=== PATIENT | female | born 1950 | race Two or more races ===

== ENCOUNTER 2024-04-20 16:11 | Emergency (ER) | payer SELFPAY ==
[2024-04-20 16:22] VITALS: BP 191/78; PULSE 81; RESP 16; TEMP 37.4; O2SAT 95
--- NOTE | 2024-04-20 16:26 | XR_ITS ---
Examination: CT cervical spine without contrast 2-D sagittal reconstructions 2-D coronal reconstructions 3-D reconstructions. Exam date and time:April 20, 2024 at 1709 hrs. Indications: Patient fell today with injury to the neck, neck pain CTDI:vol (mGy) 8.79 DLP: (mGycm) 168 Technique: Multiple 2 mm axial sections of the cervical spine have been obtained. The coronal and sagittal reconstructions have been obtained. 3-D reconstructions have been obtained. Low dose protocols were performed. One or more of the following dose reduction techniques were used; automated exposure control, adjustment of the mA and/or KV according to patient size, use of iterative reconstruction technique. Findings: Axial sections demonstrate intact base of the skull. Cervical fusion C3-C5 with advanced degenerative disc disease C5-C6 C1 exhibit satisfactory relationship to the odontoid. No acute cervical vertebral body fracture seen. Alignment posterior spinous processes satisfactory. Impression: No acute cervical fracture.
--- NOTE | 2024-04-20 16:26 | XR_ITS ---
Examination: CT brain head without contrast. 2-D sagittal coronal reconstructions Date and time of exam:April 20,025, 7009 hours Indications: Patient fell today with injury to the head, head pain CTDI: vol (mGy):50.5 DLP: (mGycm):1004 Technique: Multiple CT axial sections of the brain have been obtained, 5 mm slice thickness. Contrast has not been administered. 2-D sagittal, coronal reconstructions have been obtained Low dose protocols were performed. One or more of the following dose reduction techniques were used; automated exposure control, adjustment of the mA and/or KV according to patient size, use of iterative reconstruction technique. Findings: No significant ventricular enlargement. Soft tissue left forehead scalp swelling Intra-axial or extra-axial hemorrhage density is not seen. No mass effect or midline shift Basal cisterns are not remarkable. Fourth ventricle is midline. Cranial vault intact. Impression: Negative for acute hemorrhage, mass effect or midline shift
--- NOTE | 2024-04-20 16:29 | EKG_ITS ---
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
--- NOTE | 2024-04-20 16:29 | PD.EDRME ---
Rapid Medical Screening Exam [facility] Arrival date/time: 04/20/24 16:11 74-year-old female with a history of a left-sided below the knee amputation presents to the emergency room with a chief complaint of a ground-level fall causing her to hit her head. Patient has a laceration to her forehead. Patient states she felt numb to her good leg and felt weak. She did not slip or trip on anything. I have greeted and performed a focused initial assessment of this patient. A comprehensive ED assessment and evaluation of the patient, analysis of all test results, and completion of the medical decision making process will be conducted by additional ED providers. 18:42 74-year-old female with history of hypertension and prediabetes as well as left BKA presents to the emergency department with facial injuries following ground-level fall. Patient states she was sitting for an extended period of time and her other leg was beginning to feel tingly. She got up to stretch her leg when her knee buckled and she fell to the ground striking her face on the ground. Now with abrasions and lacerations to her face. Patient denies neck pain, focal neurologic complaints, no headache, no confusion. No difficulty speaking or swallowing. No vision changes. Patient absolutely denies any and all symptoms prior to the fall, such as chest pain, dyspnea, belly pain, dizziness or lightheadedness. On exam the patient has extensive abrasions across her forehead, nose and perioral area. She has a small 1 cm laceration to the bridge of her nose and a large, 6 cm stellate macerated laceration to the forehead. Bleeding is controlled. CT head and C-spine are normal. Workup is basically normal. She is going to need sutures. Chief Complaint: Fall Time Seen by Provider: 04/20/24 16:15 Vital signs: Vital Signs Temperature 99.4 F 04/20/24 16:22 Pulse Rate 81 04/20/24 16:22 Respiratory Rate 16 04/20/24 16:22 Blood Pressure 191/78 H 04/20/24 16:22 Pulse Oximetry (%) 95 04/20/24 16:22 Oxygen Delivery Method Room Air 04/20/24 16:22 Vital signs reviewed by provider: Yes
--- NOTE | 2024-04-20 16:36 | PC.NURSE ---
cleaned facial wounds, irrigated with NS. Provider aware.
[2024-04-20 16:56] LABS: Basophils # (Auto) 0.1 Thou/mm3 (0.0-0.2); Basophils % (Auto) 1 % (0-2.5); Eosinophils # (Auto) 0.1 Thou/mm3 (0.0-0.5); Eosinophils % (Auto) 1 % (0-10); Hematocrit 34.7 % (36.0-46.0); Hemoglobin 12.1 g/dL (12.0-16.0); Immature Granulocytes % (Auto) 1 % (0-0); Immature Granulocytes Auto 0.05 Thou/mm3 (0.00-0.00); Lymphocytes # (Auto) 3.3 Thou/mm3 (1.0-4.8); Lymphocytes % (Auto) 37 % (10-50); Mean Corpuscular HGB Conc 34.9 g/dl (31.0-37.0); Mean Corpuscular Hemoglobin 30.4 pg (25.0-35.0); Mean Corpuscular Volume 87 fL (80-100); Monocytes # (Auto) 0.8 Thou/mm3 (0.0-0.8); Monocytes % (Auto) 9 % (0-12); Neutrophils # (Auto) 4.7 Thou/mm3 (1.8-7.7); Neutrophils % (Auto) 53 % (37-80); Nucleated Red Blood Cell % 0 /100 WBC (0); Platelet Count 254 Thou/mm3 (140-440); RDW Standard Deviation 41.3 fL (36.4-46.3); Red Blood Count 3.98 Miln/mm3 (4.00-5.20)
[2024-04-20 17:09] LABS: Partial Thromboplastin Time 27.6 Seconds (22.0-36.0); Prothrombin Time 10.9 Seconds (9.0-12.2)
[2024-04-20 17:25] LABS: B-Type Natriuretic Peptide 149 pg/mL (0-100)
[2024-04-20 17:27] LABS: Alanine Aminotransferase 13 U/L (10-49); Albumin, Serum 4.1 gm/dL (3.4-4.8); Albumin/Globulin Ratio 1.2 (1.2-2.2); Alkaline Phosphatase 147 U/L (46-116); Anion Gap 13 (7-16); Aspartate Amino Transferase 15 U/L (0-34); BUN/Creatinine Ratio 27 Ratio (12-20); Bilirubin,Total 0.3 mg/dL (0.3-1.2); Blood Urea Nitrogen 30 mg/dL (9-23); Calcium 9.5 mg/dL (8.3-10.6); Calcium (Corrected) 9.5 mg/dL (8.5-10.1); Carbon Dioxide 20.4 mMol/L (20.0-31.0); Chloride 99 mMol/L (98-107); Creatinine (Component) 1.1 mg/dL (0.6-1.3); Globulin 3.4 gm/dL (2.3-3.5); Glucose 111 mg/dL (74-106); Osmolality,Calculated 271 (275-295); Potassium 3.8 mMol/L (3.4-5.1); Sodium 132 mMol/L (136-145); Total Protein 7.5 gm/dL (5.7-8.2); Troponin I < 0.020 ng/mL (0.0-0.045); eGFR 53 See Note
[2024-04-20 18:11] VITALS: BP 168/89; PULSE 74; RESP 18; TEMP 36.9; O2SAT 98
--- NOTE | 2024-04-20 18:50 | EDNOTE_ITS ---
ED Fall Injury RME/HPI General Chief Complaint: Fall Stated Complaint: LACERATION TO FORHEAD S/P TRIP AND FALL Time Seen by Provider: 04/20/24 16:15 Source: patient and family Arrival date/time: 04/20/24 16:11 Mode of arrival: ambulatory Limitations: no limitations RME / HPI RME / HPI Narrative: 04/20/24 16:11 74-year-old female with a history of a left-sided below the knee amputation presents to the emergency room with a chief complaint of a ground-level fall causing her to hit her head. Patient has a laceration to her forehead. Patient states she felt numb to her good leg and felt weak. She did not slip or trip on anything. I have greeted and performed a focused initial assessment of this patient. A comprehensive ED assessment and evaluation of the patient, analysis of all test results, and completion of the medical decision making process will be conducted by additional ED providers. Dr. Price?s Main ED Evaluation: 18:42 74-year-old female with history of hypertension and prediabetes as well as left BKA presents to the emergency department with facial injuries following ground-level fall. Patient states she was sitting for an extended period of time and her other leg was beginning to feel tingly. She got up to stretch her leg when her knee buckled and she fell to the ground striking her face on the ground. Now with abrasions and lacerations to her face. Patient denies neck pain, focal neurologic complaints, no headache, no confusion. No difficulty speaking or swallowing. No vision changes. Patient absolutely denies any and all symptoms prior to the fall, such as chest pain, dyspnea, belly pain, dizziness or lightheadedness. Related Data Previous Rx's ?Medication ?Instructions ?Recorded acetaminophen 500 mg capsule 1,000 mg (2 x 500 mg) PO Q6H PRN 04/20/24 For pain #30 caps mupirocin 2 % topical ointment 1 applic topical BID 7 days #22 04/20/24 grams Allergies Allergy/AdvReac Type Severity Reaction Status Date / Time No Known Allergies Allergy Verified 04/20/24 16:14 Review of Systems Review of Systems Systems Reviewed: All systems reviewed, normal except as documented Past Medical History Past Medical History NEUROLOGIC: Negative Neurological Disorders, Seizures or Epilepsy CARDIAC: Positive Cardiac Disorders and Hypertension; Negative Congestive Heart Failure RESPIRATORY: Negative Respiratory Disorders or Chronic Obstructive Pulmonary Disease (COPD) GASTROINTESTINAL: Negative Gastrointestinal Disorders GENITOURINARY: Negative Genitourinary Disorders or Renal Disease MUSCULOSKELETAL: Negative Arthritis, Rheumatoid Arthritis or Fractures ENT: Negative History of ENT Problems ENDOCRINE: Positive Endocrine Disorders (prediabetic on metformin) and Hypothyroidism; Negative Diabetes Mellitus Type 1 or Diabetes Mellitus Type 2 HEMATOLOGIC: Negative Blood Disorders OTHER HISTORY: Positive Blood Transfusions; Negative Blood Transfusion Reaction, Anesthesia Reactions or Cancer Surgical History SURGICAL: Positive Amputation (left BKA) Social History SMOKING STATUS: Never smoker ED Exam Narrative Physical exam: Patient has extensive abrasions across her forehead, nose and perioral area. She has a small 1 cm laceration to the bridge of her nose and a large, 6 cm stellate macerated laceration to the forehead. Bleeding is controlled. General Limitations: Present no limitations General appearance: Present alert and in no apparent distress Head Head exam: Present atraumatic Eye Eye exam: Present normal appearance, PERRL and EOMI ENT ENT exam: Present normal exam, normal oropharynx and mucous membranes moist Neck Neck exam: Present normal inspection, full ROM and trachea midline Chest Chest inspection: Present normal inspection and symmetric chest wall rise Respiratory Respiratory exam: Present normal lung sounds bilaterally Cardiovascular Cardiovascular exam: Present regular rate, normal rhythm and normal heart sounds Abdominal Exam Abdominal exam: Present soft and normal bowel sounds Extremities Exam Extremities exam: Present normal inspection and full ROM Back Exam Back exam: Present normal inspection and full ROM Neurological Exam Neurological exam: Present alert, oriented X3 and CN II-XII intact Psychiatric Psychiatric exam: Present normal affect and normal mood Skin Skin exam: Present warm, dry, intact and normal color Course Quality Measures none Orders Category Date Time Status EKG (ED ONLY) *Do not use* NOW Care 04/20/24 16:29 Active Set Up Suture Tray STAT Care 04/20/24 18:[address] cervical spine wo con Stat Exams 04/20/24 16:[address] head/brain wo con Stat Exams 04/20/24 16:26 Completed EKG (ED Only) Stat Exams 04/20/24 16:29 Draft B-Type Natriuretic Peptide Stat Lab 04/20/24 16:45 Completed CBC Stat Lab 04/20/24 16:45 Completed CMP [Comprehensive Metabolic Panel] Stat Lab 04/20/24 16:45 Completed Partial Thromboplastin Time Stat Lab 04/20/24 16:45 Completed Prothrombin Time with INR Stat Lab 04/20/24 16:45 Completed Troponin I Stat Lab 04/20/24 16:45 Completed Bacitracin Oint pkt Med 04/20/24 18:50 Discontinued 1 gm TOP X1 ONE Bupivacaine Mpf/Epi 0.25% [Sensorcaine-Mpf Inj 0.25% w/ Med 04/20/24 18:48 Discontinued Epi] 30 ml EPID X1 ONE Lidocaine 1% 20 ml [Xylocaine 1% 20 ML] Med 04/20/24 20:10 Discontinued 20 ml INFL X1 ONE Vital Signs Vital signs: Vital Signs Temperature 99.4 F 04/20/24 16:22 Pulse Rate 81 04/20/24 16:22 Respiratory Rate 16 04/20/24 16:22 Blood Pressure 191/78 H 04/20/24 16:22 Pulse Oximetry (%) 95 04/20/24 16:22 Oxygen Delivery Method Room Air 04/20/24 16:22 Procedures -ED Procedure Comment The patient sustained a complex avulsion laceration to the forehead, which required partial closure to avoid compromising blood flow to the tissue flap. Due to the complexity of the avulsion, complete approximation with sutures was not possible without risking tissue ischemia. Laceration Laceration 1: Site: other (forehead) Size (cm): 6 Description: stellate Depth: simple, single layer Local Anesthetic: lidocaine 2% (without epi, 9cc) Pre-repair: wound explored and irrigated extensively Skin layer closed with: nylon Size (cm): 5-0 Number of sutures: 11 Technique: simple, interrupted Laceration 2: Site: other (bridge of nose) Size (cm): 1 Description: linear Depth: simple, single layer Local Anesthetic: lidocaine 2% Pre-repair: wound explored and irrigated extensively Skin layer closed with: nylon Size (cm): 5-0 Number of sutures: 2 Technique: simple, interrupted Fall MDM Narrative MDM Narrative:: CT head and C-spine are normal. Workup is basically normal. She is going to need sutures. See procedure note. Patient education regarding wound care and infection prevention was provided, and all questions were addressed. Scribe Attestation: IMarley, am scribing for and in the presence of Dr. Price. Provider Notation: Although this document has been carefully reviewed, there may still be some phonetic and other typographical errors. These errors are purely grammatical due to imperfections in the software program and should not be construed in any way to compromise the substance of the patient's medical care during this visit. Patient data External records reviewed:: None Clinical information provided by:: patient and family Social determinants that could affect healthcare access:: none Patient has the following chronic illnesses:: see PMH How is presenting disease/condition affected by chronic disease/condition?: uneffected by Evaluation data The following diagnostics were reviewed and interpreted by me:: lab results, radiology exam(s) and EKG tracing(s) Lab and/or radiology exams considered but not ordered:: n/a Interpretation Summary: I personally reviewed the radiology data and agree with the radiologist's interpretation. Examination: CT cervical spine without contrast Exam date and time:April 20, 2024 at 1709 hrs. Indications: Patient fell today with injury to the neck, neck pain Findings: Axial sections demonstrate intact base of the skull. Cervical fusion C3-C5 with advanced degenerative disc disease C5-C6 C1 exhibit satisfactory relationship to the odontoid. No acute cervical vertebral body fracture seen. Alignment posterior spinous processes satisfactory. Impression: No acute cervical fracture. Dictated By: Michael Neff MD Examination: CT brain head without contrast. Date and time of exam:April 20025, 7009 hours Indications: Patient fell today with injury to the head, head pain Findings: No significant ventricular enlargement. Soft tissue left forehead scalp swelling Intra-axial or extra-axial hemorrhage density is not seen. No mass effect or midline shift Basal cisterns are not remarkable. Fourth ventricle is midline. Cranial vault intact. Impression: Negative for acute hemorrhage, mass effect or midline shift Dictated By: Michael Neff MD Medications / Prescriptions Medications or Prescriptions considered but not ordered:: n/a Medication administrations:: Medication Administration History Discontinued Medications Bacitracin (Bacitracin Oint 1 Gm Packet) 1 gm TOP X1 ONE Stop: 04/20/24 18:51 Last Admin: 04/20/24 20:55 Dose: 1 gm Documented By: EF Comments: barcode not scanning Bupivacaine HCl/Epinephrine Bitart (Bupivacaine Mpf/Epi 0.25% 30 Ml Vial 1:200,000) 30 ml EPID X1 ONE Stop: 04/20/24 18:49 Last Admin: 04/20/24 20:18 Dose: Not Given Documented By: EF Non-Admin Reason: Cancelled by Provider Lidocaine HCl (Lidocaine Hcl 1% 20 Ml Vial) 20 ml INFL X1 ONE Stop: 04/20/24 20:11 Last Admin: 04/20/24 20:54 Dose: 20 ml Documented By: EF as above Consultations Consultation(s) initiated? (list below): No Diagnosis Fall Differential Diagnosis: other (Fracture, dislocation, laceration, abrasion) Most likely diagnosis given after review of the tests above:: Complex laceration of face, Laceration of nose, Abrasion of face Admission Indicated Admission indicated?: not indicated Admission Request Was there a request for admission?: No Disposition Plan Disposition Plan: Discharge Discharge Attestation Discharge Attestation: The patient and all family members were given an opportunity to ask questions and understood the discharge instructions. Discharge instructions specifically effects, indications for sooner follow up or return to the emergency department, and the expected course of current diagnosis. Patient condition: Stable Discharge Plan Plan Patient Disposition: HOME (Self Care) Disposition Comment: Stable for discharge home Patient condition on transfer: Stable Prescriptions/Referrals Prescriptions/Med Rec: New mupirocin 2 % ointment 1 applic topical BID 7 Days Qty: 22 0RF acetaminophen 500 mg capsule 1,000 mg PO Q6H PRN (Reason: For pain) Qty: 30 0RF Referrals: [facility] [Outside] - In 1 week Problem List Clinical Impression: Complex laceration of face, Laceration of nose, Abrasion of face Patient/Caregiver Discharge Instructions Discharge Activity: activity as tolerated Education Materials: ED Abrasions, ED Laceration Nose with ..., ED Laceration, Face: Stitches or Tape Additional Instructions: The sutures need to be removed in 7 days. Please use the mupirocin antibiotic ointment on all of your facial wounds twice per day until they are completely healed. Your forehead wound is very complex and it is what we call an avulsion laceration. This means there was a flap of tissue. This is going to take a while to heal and we were not able to suture it as well as we would have liked since that flap can only hold so many sutures before it stops having blood flow. Please keep this wound covered, use antibiotic ointment twice per day and please return to the emergency department if you notice any worsening or any further medical problems. You should look out for infection of any of these wounds. If your wounds become infected you will notice them becoming more red, swollen, painful and may be have drainage from the wound. If this happens return to the ER right away please. Print Language: Upper Sorbian Stand Alone Forms: Luisa Award Info., Patient Portal Info Letter
[2024-04-20] MEDS: LIDOCAINE HCL 1% 20 ML VIAL INFL (20:54)
[2024-04-20] MEDS: BACITRACIN OINT 1 GM PACKET TOP (20:55)
[2024-04-20 21:29] VITALS: BP 157/70; PULSE 60; RESP 18; O2SAT 97
== END 2024-04-20 21:30 | disposition home or self-care (01) ==
PROVIDERS: Nurse Practitioner Family; Emergency Provider Emergency Medicine
DX: S01.81XA Laceration without foreign body of other part of head, initial encounter (principal); S01.21XA Laceration without foreign body of nose, initial encounter; W18.30XA Fall on same level, unspecified, initial encounter
CPT/HCPCS: 12015; 36415; 70450; 72125; 80053; 81001; 83880; 84484; 85025; 85610; 85730; 99284; J3490; A9270